=== PATIENT | male | born 2000 | race Caucasian/White ===

== ENCOUNTER 2024-04-05 21:49 | Emergency (ER) | payer OTHER, MEDICAID ==
[~2024-04-05] VITALS: Ht 167.6 cm; Wt 59.0 kg
[2024-04-05 21:56] VITALS: BP_SYST 121; PULSE 90; RESP 20; TEMP 87.7; O2SAT 96
[2024-04-05] MEDS: IBUPROFEN 600 MG TABLET PO ONE (22:52)
[2024-04-05] MEDS ORDERED: NAPR-690 PO (23:45)
[2024-04-05 23:52] VITALS: BP_SYST 116; PULSE 85; RESP 20; TEMP 98; O2SAT 95
== END 2024-04-05 23:52 | disposition home or self-care (01) ==
LOC: SED 21:49
DX: S13.8XXA Sprain of joints and ligaments of other parts of neck, initial encounter (principal); S33.5XXA Sprain of ligaments of lumbar spine, initial encounter; Z88.1 Allergy status to other antibiotic agents; Z79.899 Other long term (current) drug therapy; V89.2XXA Person injured in unspecified motor-vehicle accident, traffic, initial encounter; Y93.89 Activity, other specified; Y92.89 Other specified places as the place of occurrence of the external cause; Y99.8 Other external cause status
CPT/HCPCS: 72040; 72100; 99284